=== PATIENT | female | born 2000 | race Caucasian/White ===

== ENCOUNTER 2025-04-29 14:41 | Emergency (ER) | payer MEDICAID, SELFPAY ==
--- NOTE | 2025-04-29 | XR_ITS ---
Examination: MRI orbits and head without intravenous contrast MRI orbits head with intravenous contrast Date and time of exam: April 29, 2025, 1737 hours INDICATIONS: Headaches double vision blurred vision ringing in the ears 3 days Technique: Multiple MRI axial and sagittal sections orbits and head brain without intravenous contrast Sagittal T2-weighted images, TR 3500, TE 118 T1 weighted transverse sections, TR 688 T8.5, T2-weighted sagittal sections T1 weighted sagittal sections TR 621, TE 30 T2 axial sections, TR 4, 190, TE 84. Axial sagittal and coronal images orbits, head of brain post intravenous administration 13 cc gadolinium Findings: Ventricles are normal in size and configuration No effacement cortical sulcal markings, no shift of the frontal horns No acute hemorrhage either intra or extra-axial Diffusion-weighted images demonstrate no focus of restricted diffusion FLAIR T2-weighted axial images demonstrate no punctate foci of increased signal in the white matter The optic globes exhibit symmetry Optic nerves bilaterally are intact There is no thickening of the ophthalmic musculature Normal sella turcica no pituitary macro or microadenoma No disruption of the optic chiasm No para cavernous mass Postcontrast images demonstrate no abnormal cerebellar or cerebral enhancement, no enhancing retro-orbital lesion noted No herniation of the cerebellar tonsils IMPRESSION: Negative for acute hemorrhage, mass effect or midline shift No acute infarct No MR findings of demyelinating disease No orbital or retro-orbital lesions, no enlargement of the optic musculature No abnormal enhancing cerebellar or cerebral lesions No distortion of the optic chiasm, no pituitary macro or microadenoma
[2025-04-29 14:42] VITALS: BMI 25.0
[2025-04-29 14:50] VITALS: BP 128/78; PULSE 82; RESP 18; TEMP 36.7; O2SAT 100
--- NOTE | 2025-04-29 15:01 | EDRME_ITS ---
Rapid Medical Screening Exam [facility] Arrival date/time: 04/29/25 14:41 24-year-old female with no known medical history presents to the emergency room with a chief complaint of a headache, blurry vision, double vision, and ringing in the ears x 3 days. Patient was seen by her superintendent renting managing and sent to the emergency room for a stat MRI to rule out a space-occupying lesion or pseudotumor cerebri. I have greeted and performed a focused initial assessment of this patient. A comprehensive ED assessment and evaluation of the patient, analysis of all test results, and completion of the medical decision making process will be conducted by additional ED providers. Chief Complaint: General Adult/Misc Complain Vital signs: Vital Signs Temperature 98.0 F 04/29/25 14:50 Pulse Rate 82 04/29/25 14:50 Respiratory Rate 18 04/29/25 14:50 Blood Pressure 128/78 04/29/25 14:50 Pulse Oximetry (%) 100 04/29/25 14:50 Oxygen Delivery Method Room Air 04/29/25 14:50 Vital signs reviewed by provider: Yes Exam: GCS 15 alert and oriented x 3 pupils are PERRLA EOMs are intact Clear bilateral lung sounds Clinical Impression: Headache/migraine/space-occupying lesion
[2025-04-29 15:19] LABS: Basophils # (Auto) 0.0 Thou/mm3 (0.0-0.2); Basophils % (Auto) 0 % (0-2.5); Eosinophils # (Auto) 0.1 Thou/mm3 (0.0-0.5); Eosinophils % (Auto) 1 % (0-10); Hematocrit 40.9 % (36.0-46.0); Hemoglobin 13.8 g/dL (12.0-16.0); Immature Granulocytes Auto 0.02 Thou/mm3 (0.00-0.00); Lymphocytes # (Auto) 2.0 Thou/mm3 (1.0-4.8); Lymphocytes % (Auto) 31 % (10-50); Mean Corpuscular HGB Conc 33.7 g/dl (31.0-37.0); Mean Corpuscular Hemoglobin 29.5 pg (25.0-35.0); Mean Corpuscular Volume 87 fL (80-100); Monocytes # (Auto) 0.4 Thou/mm3 (0.0-0.8); Monocytes % (Auto) 7 % (0-12); Neutrophils # (Auto) 3.8 Thou/mm3 (1.8-7.7); Neutrophils % (Auto) 60 % (37-80); Nucleated Red Blood Cell # 0.00 Thou/mm3 (0.00-0.00); Nucleated Red Blood Cell % 0 /100 WBC (0); Platelet Count 246 Thou/mm3 (140-440); RDW Standard Deviation 39.9 fL (36.4-46.3); Red Blood Count 4.68 Miln/mm3 (4.00-5.20); White Blood Count 6.3 Thou/mm3 (3.6-11.0)
[2025-04-29 15:38] LABS: Alanine Aminotransferase 15 U/L (10-49); Albumin, Serum 4.9 gm/dL (3.5-5.0); Albumin/Globulin Ratio 1.7 (1.2-2.2); Alkaline Phosphatase 75 U/L (46-116); Anion Gap 9 (7-16); Aspartate Amino Transferase 22 U/L (0-34); BUN/Creatinine Ratio 10 Ratio (12-20); Bilirubin,Total 0.6 mg/dL (0.3-1.2); Blood Urea Nitrogen 8 mg/dL (9-23); C-Reactive Protein < 0.5 mg/dL (0.0-0.9); Calcium 9.5 mg/dL (8.3-10.6); Calcium (Corrected) 9.5 mg/dL (8.5-10.1); Carbon Dioxide 27.6 mMol/L (20.0-31.0); Chloride 105 mMol/L (98-107); Creatinine (Component) 0.8 mg/dL (0.6-1.3); Estimated Creatinine Clearance 97.6 mL/min (>60); Globulin 2.9 gm/dL (2.3-3.5); Glucose 86 mg/dL (74-106); Osmolality,Calculated 280 (275-295); Potassium 3.9 mMol/L (3.4-5.1); Sodium 142 mMol/L (136-145); Total Protein 7.8 gm/dL (5.7-8.2); eGFR > 60 See Note
[2025-04-29 15:42] LABS: Sed Rate (ESR) 5 mm/hr (0-20)
[2025-04-29 15:58] LABS: Collection Type, Urine Clean Catch
[2025-04-29 16:04] LABS: Bilirubin,Urine Negative (Negative); Blood,Urine Negative (Negative); Clarity,Urine Clear (Clear/Hazy); Color,Urine Lt-Yellow (Lt Yel-Yel); Culture Indicated,Urine Not Indicated; Glucose, Urine Negative (Negative); Ketones,Urine Negative (Negative); Leukocyte Esterase,Urine Positive (Negative); Nitrite,Urine Negative (Negative); PH,Urine 6.0 (5.0-7.0); Protein,Urine Negative (Neg - Trace); RBC,Urine 4 /hpf (0-3); Specific Gravity,Urine 1.019 (1.001-1.035); Squamous Epithelial Cell,Urine 3 /hpf (0-5); Urobilinogen,Urine Negative mg/dL (0.0-1.0); WBC,Urine 2 /hpf (0-5)
[2025-04-29 17:04] LABS: HCG Qualitative,Urine Negative
--- NOTE | 2025-04-29 19:19 | EDNOTE_ITS ---
ED General RME/HPI General Chief complaint: General Adult/Misc Complain Stated complaint: REFFERED FROM PCP FOR MRI Time Seen by Provider: 04/29/25 18:19 Arrival date/time: 04/29/25 14:41 RME / HPI RME / HPI narrative: 04/29/25 14:41 24-year-old female with no known medical history presents to the emergency room with a chief complaint of a headache, blurry vision, double vision, and ringing in the ears x 3 days. Patient was seen by her shop cooper and sent to the emergency room for a stat MRI to rule out a space-occupying lesion or pseudotumor cerebri. I have greeted and performed a focused initial assessment of this patient. A c omprehensive ED assessment and evaluation of the patient, analysis of all test results, and completion of the medical decision making process will be conducted by additional ED providers. Exam: GCS 15 alert and oriented x 3 pupils are PERRLA EOMs are intact Clear bilateral lung sounds Impression: Headache/migraine/space-occupying lesion Related Data Home Medications ?Medication ?Instructions ?Recorded ?Confirmed vitamins-iron fumarate 27 1 tab PO QDAY 09/0109/02/19 mg iron-folic acid 0.8 mg tablet ( Vitamin) Allergies Allergy/AdvReac Type Severity Reaction Status Date / Time pistachio nut Allergy Intermediate Hives Verified 04/29/25 14:45 ED Exam Narrative Physical exam: Physical Exam: GENERAL: Awake, answering questions appropriately, appears stated age HEENT: NC/AT. Moist mucosa. PERRLA/EOMI. Papilledema noted bilaterally CARDIO: Heart RRR, no obvious murmurs, no JVD. PULM: No coughing or visible SOB. Lungs CTA B/L. GI: Abdomen soft, NT/ND, +BS. SKIN/MSK/EXT: No wounds/discoloration/rashes/edema/amputations. +Pedal pulses present B/L. NEURO: Oriented x3, cranial nerves II to XII grossly intact, no focal neurologic deficits noted, Moves extremities x4. Course Quality Measures none Orders Category Date Time Status MRI Screening NOW Care 04/29/25 15:00 Active MR head & orbits w/wo con Stat Exams 04/29/25 Completed CBC Stat Lab 04/29/25 15:05 Completed CMP [Comprehensive Metabolic Panel] Stat Lab 04/29/25 15:05 Completed CRP [C-Reactive Protein] Stat Lab 04/29/25 15:05 Completed ESR [Sed Rate (ESR)] Stat Lab 04/29/25 15:05 Completed HCG Qualitative,Urine Stat Lab 04/29/25 15:49 Completed UA, C/S IF [Urinalysis, C/S if Indicated] Stat Lab 04/29/25 15:49 Completed Vital Signs Vital signs: Vital Signs Temperature 98.0 F 04/29/25 14:50 Pulse Rate 82 04/29/25 14:50 Respiratory Rate 18 04/29/25 14:50 Blood Pressure 128/78 04/29/25 14:50 Pulse Oximetry (%) 100 04/29/25 14:50 Oxygen Delivery Method Room Air 04/29/25 14:50 Discharge Plan Plan Patient Disposition: HOME (Self Care) Discharge Disposition comment: Please follow-up with your PCP and ask for an supervisor logging referral Please follow-up with your SENIOR ACCOUNTS PAYABLE CLERK for the pelvic pain that you are experiencing If your symptoms worsen or if your headache gets severe including worsening of blurry vision please come back to the emergency room. Patient condition on transfer: Stable Prescriptions/Referrals Prescriptions/Med Rec: No Action Vitamin 27 mg iron- 0.8 mg Tablet 1 tab PO QDAY Referrals: Tucker Orozco MD [Primary Care Provider, Family Practice] - In 1 week Problem List Clinical Impression: Papilledema of both eyes Patient/Caregiver Discharge Instructions Print Language: Mexican Stand Alone Forms: [employer] Award Info., Patient Portal Info Letter MDM Narrative MDM hospital course (for use when minimal MDM required): HPI: 24-year-old female with no concerning past medical history presenting to the ED on 04/29 with complaint of blurry vision and intermittent mild headaches. Patient states that she was recently seen by supervisor logging who recommended that she come to the ED to obtain an MRI as on examination there was noted optic nerve swelling. 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 Patient states the headaches are not severe in nature and they feel regular and are intermittent in nature. She denies having any hearing changes, fever/chills, chest pain, shortness of breath, dizziness, difficulty ambulating or any other concerning neurologic symptoms. Patient does state that she has some central pelvic discomfort which has been ongoing for the past few months as well and she has an SENIOR ACCOUNTS PAYABLE CLERK appointment within the next week for follow-up. On examination, please refer to the physical exam noted above, patient's vitals are stable with blood pressure 128/78, heart rate of 82, respiratory rate 18, temperature afebrile saturating 100 on room air Laboratory findings largely unremarkable including CBC, CMP, urinalysis negative for any acute findings other than positive leukocyte esterase and mild RBCs noted. Brain MRI is negative and does not show any acute hemorrhage, mass effect, acute infarct, demyelinating disease, retro-orbital or orbital lesions, no enlargement of the optic musculature, no abnormal enhancing cerebellar or cerebral lesions and no distortion of the optic chiasm including no pituitary macro microadenoma's. Differentials include: Pseudotumor cerebri, normal pressure hydrocephalus, JANITORIAL ASSISTANT lesion, MS, mass, ovarian tumor #Papilledema As noted, patient has physical exam findings of papilledema along with history detailing blurry vision with intermittent headaches which are not severe and nature MRI is largely negative In-house neurology curb sided and denies the need for a lumbar puncture at this time as the patient's headache is not severe and there would not be any therapeutic or diagnostic benefit from doing a lumbar puncture In-house neurology does recommend that the patient follow-up with an supervisor logging at the earliest availability for further workup for the papilledema Plan: Patient will be discharged with the following information Patient understands that if her headaches are worsening and become severe in nature or if her blurry vision becomes worse to come right back to the emergency room for further workup and management. Patient was seen Patient was seen and assessed with attending Dr. Bc Nevarez, DO PGY-2 Internal Medicine - [facility]
[2025-04-29 19:56] VITALS: BP 125/76; PULSE 80; RESP 20; TEMP 37; O2SAT 100
== END 2025-04-29 19:58 | disposition home or self-care (01) ==
PROVIDERS: Nurse Practitioner Family; Emergency Provider Emergency Medicine; PCP Family Medicine
DX: H47.10 Unspecified papilledema (principal)
CPT/HCPCS: 36415; 70543; 80053; 81001; 81025; 85025; 85652; 86140; 99283; A9577